=== PATIENT | female | born 1970 | race African-American/Black ===

== ENCOUNTER 2017-11-30 08:25 | Observation (INO) | payer MEDICAID ==
[~2017-11-30] VITALS: Ht 162.6 cm; Wt 100.0 kg
[2017-11-30 08:25] VITALS: BP 141/99; PULSE 80; RESP 20; TEMP 96.7; O2SAT 99
[~2017-11-30 08:25] MED LIST: AMLO10 PO; EXTR500C PO; FAMO20 PO; LORTA5 PO; PERI8.6T PO
[2017-11-30 09:19] LABS: AUTOMATED NEUTROPHIL # 4.1 TH/MM3 (1.8-7.7); BASOPHIL # 0.1 TH/MM3 (0-0.2); EOSINOPHIL # 0.2 TH/MM3 (0-0.4); HEMOGLOBIN 10.3 GM/DL (11.6-15.3); LYMPH % 26.9 % (9.0-44.0); LYMPHOCYTE # 1.8 TH/MM3 (1.0-4.8); MEAN CELL VOLUME 91.1 FL (80.0-100.0); MEAN CORPUSCULAR HEMOGLOBIN 31.5 PG (27.0-34.0); MEAN CORPUSCULAR HGB CONC 34.5 % (32.0-36.0); MEAN PLATELET VOLUME 7.6 FL (7.0-11.0); MONO % 6.9 % (0.0-8.0); MONOCYTE # 0.4 TH/MM3 (0-0.9); NEUT % 62.2 % (16.0-70.0); PLATELET COUNT 380 TH/MM3 (150-450); RED BLOOD COUNT 3.29 MIL/MM3 (4.00-5.30); RED CELL DISTRIBUTION WIDTH 13.9 % (11.6-17.2); WHITE BLOOD COUNT 6.5 TH/MM3 (4.0-11.0)
--- NOTE | 2017-11-30 09:21 | RADRPT ---
EXAM DATE/TIME: 11/30/2017 09:14 [facility] COMPARISON: CHEST SINGLE AP, April 28, 2016, 16:36. INDICATIONS : Right upper chest pain MEDICAL HISTORY : SURGICAL HISTORY : None. Cholecystectomy. Tubal ligation. section ENCOUNTER: Initial ACUITY: 2 weeks PAIN SCORE: 7/10 LOCATION: Right chest FINDINGS: A single view of the chest demonstrates the lungs to be symmetrically aerated without evidence of mas s, infiltrate or effusion. The cardiomediastinal contours are unremarkable. Osseous structures are intact. CONCLUSION: No acute disease. No significant change has occurred. Fabiano Arthur MD on November 30, 2017 at 9:19 Board Certified Radiologist. This report was verified electronically.
[2017-11-30 09:30] LABS: PROTHROMBIN TIME - PATIENT 9.9 SEC (9.8-11.6)
[2017-11-30 09:52] LABS: TROPONIN I LESS THAN 0.02 NG/ML (0.02-0.05)
[2017-11-30 10:00] VITALS: BP 152/78; PULSE 78; RESP 16; O2SAT 99
[2017-11-30 10:15] LABS: BICARBONATE 25.5 MEQ/L (21.0-32.0); BLOOD UREA NITROGEN 7 MG/DL (7-18); CALCIUM 8.3 MG/DL (8.5-10.1); CHLORIDE 109 MEQ/L (98-107); CREATININE 0.74 MG/DL (0.50-1.00); GLOMERULAR FILTRATION RATE 101 ML/MIN (>89); GLUCOSE,RANDOM 91 MG/DL (74-106); SODIUM (NA) 140 MEQ/L (136-145)
[2017-11-30] MEDS ORDERED: NITROGLYCERIN 2% OINT 1 GM PACKET TOPICAL ONE (10:45)
[2017-11-30] MEDS ORDERED: ONDANSETRON HCL 4 MG/2 ML VIAL IV PUSH ONE (10:45)
[2017-11-30] MEDS ORDERED: ASPIRIN 81 MG CHEW TAB CHEW ONE (10:45)
[2017-11-30] MEDS ORDERED: MORPHINE SULFATE 4 MG/ML INJ IV PUSH ONE (10:45)
--- NOTE | 2017-11-30 10:46 | PD ---
Physical Exam Date Seen by Provider: Nov 30, 2017 Narrative Patient presents with a chief complaint of chest pain which has been coming and going for the last several weeks. Her chest pain is worse today. She describes a pressure like sensation in the right side of her chest. Data Data Last Documented VS Vital Signs Date Time Temp Pulse Resp B/P (MAP) Pulse Ox O2 Delivery O2 Flow Rate FiO2 11/30/17 10:00 78 16 152/78 (102) 99 Room Air 11/30/17 08:25 96.7 Orders Orders Electrocardiogram (11/30/17 08:54) Complete Blood Count With Diff (11/30/17 08:54) Basic Metabolic Panel (Bmp) (11/30/17 08:54) Ckmb (Isoenzyme) Profile (11/30/17 08:54) Troponin I (11/30/17 08:54) Chest, Single Ap (11/30/17 08:54) Iv Access Insert/Monitor (11/30/17 08:54) Ecg Monitoring (11/30/17 08:54) Oxygen Administration (11/30/17 08:54) Oximetry (11/30/17 08:54) Coag Profile (11/30/17 08:54) CKMB (11/30/17 09:00) CKMB% (11/30/17 09:00) D-Dimer (11/30/17 10:43) Ondansetron Inj (Zofran Inj) (11/30/17 10:45) Morphine Inj (Morphine Inj) (11/30/17 10:45) Aspirin Chew (Aspirin Chew) (11/30/17 10:45) Nitroglycerin 2% Oint (Nitroglycerin 2% (11/30/17 10:45) Labs Laboratory Tests Test 11/30/17 09:00 White Blood Count 6.5 TH/MM3 Red Blood Count 3.29 MIL/MM3 Hemoglobin 10.3 GM/DL Hematocrit 30.0 % Mean Corpuscular Volume 91.1 FL Mean Corpuscular Hemoglobin 31.5 PG Mean Corpuscular Hemoglobin Concent 34.5 % Red Cell Distribution Width 13.9 % Platelet Count 380 TH/MM3 Mean Platelet Volume 7.6 FL Neutrophils (%) (Auto) 62.2 % Lymphocytes (%) (Auto) 26.9 % Monocytes (%) (Auto) 6.9 % Eosinophils (%) (Auto) 3.0 % Basophils (%) (Auto) 1.0 % Neutrophils # (Auto) 4.1 TH/MM3 Lymphocytes # (Auto) 1.8 TH/MM3 Monocytes # (Auto) 0.4 TH/MM3 Eosinophils # (Auto) 0.2 TH/MM3 Basophils # (Auto) 0.1 TH/MM3 CBC Comment DIFF FINAL Differential Comment Prothrombin Time 9.9 SEC Prothromb Time International Ratio 1.0 RATIO Activated Partial Thromboplast Time 21.5 SEC Blood Urea Nitrogen 7 MG/DL Creatinine 0.74 MG/DL Random Glucose 91 MG/DL Calcium Level 8.3 MG/DL Sodium Level 140 MEQ/L Potassium Level 3.7 MEQ/L Chloride Level 109 MEQ/L Carbon Dioxide Level 25.5 MEQ/L Anion Gap 6 MEQ/L Estimat Glomerular Filtration Rate 101 ML/MIN Total Creatine Kinase 288 U/L Creatine Kinase MB 4.1 NG/ML Creatine Kinase MB % 1.4 % Troponin I LESS THAN 0.02 NG/ML MDM Supervised Visit with KISHA: Yes Narrative Course I, Dr. Garcia, have reviewed the advance practice practitioner's documentation and am in agreement, met with the patient face to face, made the diagnosis, and the medical decision making was done by me. *My assessment and Findings: This patient is awake and alert. She looks anxious. Initial cardiac evaluation is negative. We have added a d-dimer. The plan is to admit her to the chest pain center once we have the results of the d-dimer. Please see Rikki Baer PA-C's note for results of laboratory and radiographic evaluation, ED course, final diagnosis and disposition Scripts No Active Prescriptions or Reported Meds Paula Garcia MD Nov 30, 2017 10:46
--- NOTE | 2017-11-30 10:47 | PD ---
HPI Chief Complaint: Chest Pain Time Seen by Provider: 10:35 Travel History International Travel<30 days: No Contact w/Intl Traveler<30days: No Traveled to known affect area: No History of Present Illness HPI 47-year-old -[place] female presents the emergency department with history of intermittent chest pressure,/pain which has become more prominent over the last 3 weeks. Patient states it comes and goes but has been worse in the past several days. Patient states she woke up with it this morning and it seemed to pass, but then returned when she came to work this morning. She describes it as a 7/10 pressure type pain in the right anterior substernal region. She seems to feel that it is improved if she puts pressure on it. She denies fever, chills, productive cough, wheezing, nausea, or vomiting. Patient has no history of hypertension except during , and is not diabetic. She states it seems to improve with rest normally, but today seems to be hanging on. She has no known drug allergies. PFSH Past Medical History Arthritis: Yes Cancer: No Cardiovascular Problems: No Diminished Hearing: No Endocrine: No Gastrointestinal Disorders: Yes GERD: Yes Genitourinary: No Immune Disorder: No Musculoskeletal: Yes Neurologic: Yes Psychiatric: No Reproductive: No Respiratory: No Immunizations Current: Yes Migraines: Yes ?: Not Tubal Ligation: Yes Past Surgical History Section: Yes Cholecystectomy: Yes Social History Alcohol Use: Yes (occ) Tobacco Use: No Substance Use: No Allergies-Medications (Allergen,Severity, Reaction): Coded Allergies: No Known Allergies (Verified Adverse Reaction, Unknown, 11/30/17) Reported Meds & Prescriptions Reported Meds & Active Scripts Active No Active Prescriptions or Reported Medications Review of Systems Except as stated in HPI: all other systems reviewed are Neg General / Constitutional: No: Fever, Chills Eyes: No: Visual changes HENT: No: Headaches Cardiovascular: Positive: Chest Pain or Discomfort, No: Palpitations, Irregular Rhythm, Tachycardia, Diaphoresis, Syncope, Dyspnea on exertion, Varicosities, Edema, Cyanosis, Varicosities, Phlebitis, Claudication Respiratory: No: Cough, Shortness of Breath, Wheezing Gastrointestinal: No: Nausea, Vomiting, Diarrhea, Abdominal Pain Genitourinary: No: Urgency, Frequency, Dysuria Musculoskeletal: No: Pain Skin: No Rash Neurologic: No: Weakness Psychiatric: No: Depression Endocrine: No: Polydipsia Hematologic/Lymphatic: No: Easy Bruising Physical Exam Narrative GENERAL: Patient appears moderately anxious and uncomfortable SKIN: Warm and dry. Normal color. Normal turgor. No diaphoresis. HEAD: Atraumatic. Normocephalic. EYES: Pupils equal and round. No scleral icterus. No injection or drainage. ENT: No nasal bleeding or discharge. Mucous membranes pink and moist. Pharynx is clear. Airways patent. NECK: Trachea midline. Supple and nontender CARDIOVASCULAR: Regular rate and rhythm. No murmurs gallops or rubs. RESPIRATORY: No accessory muscle use. Clear to auscultation. Breath sounds equal bilaterally. No reproducible pain with palpation to the chest. GASTROINTESTINAL: Abdomen soft, non-tender, nondistended. Hepatic and splenic margins not palpable. MUSCULOSKELETAL: Extremities without clubbing, cyanosis, or edema. No obvious deformities. NEUROLOGICAL: Awake and alert. No obvious cranial nerve deficits. Motor grossly within normal limits. Five out of 5 muscle strength in the arms and legs. Normal speech. PSYCHIATRIC: Appropriate mood and affect; insight and judgment normal. Data Data Last Documented VS Vital Signs Date Time Temp Pulse Resp B/P (MAP) Pulse Ox O2 Delivery O2 Flow Rate FiO2 11/30/17 10:00 78 16 152/78 (102) 99 Room Air 11/30/17 08:25 96.7 Orders Orders Electrocardiogram (11/30/17 08:54) Complete Blood Count With Diff (11/30/17 08:54) Basic Metabolic Panel (Bmp) (11/30/17 08:54) Ckmb (Isoenzyme) Profile (11/30/17 08:54) Troponin I (11/30/17 08:54) Chest, Single Ap (11/30/17 08:54) Iv Access Insert/Monitor (11/30/17 08:54) Ecg Monitoring (11/30/17 08:54) Oxygen Administration (11/30/17 08:54) Oximetry (11/30/17 08:54) Coag Profile (11/30/17 08:54) CKMB (11/30/17 09:00) CKMB% (11/30/17 09:00) Labs Laboratory Tests Test 11/30/17 09:00 White Blood Count 6.5 TH/MM3 Red Blood Count 3.29 MIL/MM3 Hemoglobin 10.3 GM/DL Hematocrit 30.0 % Mean Corpuscular Volume 91.1 FL Mean Corpuscular Hemoglobin 31.5 PG Mean Corpuscular Hemoglobin Concent 34.5 % Red Cell Distribution Width 13.9 % Platelet Count 380 TH/MM3 Mean Platelet Volume 7.6 FL Neutrophils (%) (Auto) 62.2 % Lymphocytes (%) (Auto) 26.9 % Monocytes (%) (Auto) 6.9 % Eosinophils (%) (Auto) 3.0 % Basophils (%) (Auto) 1.0 % Neutrophils # (Auto) 4.1 TH/MM3 Lymphocytes # (Auto) 1.8 TH/MM3 Monocytes # (Auto) 0.4 TH/MM3 Eosinophils # (Auto) 0.2 TH/MM3 Basophils # (Auto) 0.1 TH/MM3 CBC Comment DIFF FINAL Differential Comment Prothrombin Time 9.9 SEC Prothromb Time International Ratio 1.0 RATIO Activated Partial Thromboplast Time 21.5 SEC Blood Urea Nitrogen 7 MG/DL Creatinine 0.74 MG/DL Random Glucose 91 MG/DL Calcium Level 8.3 MG/DL Sodium Level 140 MEQ/L Potassium Level 3.7 MEQ/L Chloride Level 109 MEQ/L Carbon Dioxide Level 25.5 MEQ/L Anion Gap 6 MEQ/L Estimat Glomerular Filtration Rate 101 ML/MIN Total Creatine Kinase 288 U/L Creatine Kinase MB 4.1 NG/ML Creatine Kinase MB % 1.4 % Troponin I LESS THAN 0.02 NG/ML MDM Medical Decision Making Medical Screen Exam Complete: Yes Emergency Medical Condition: Yes Medical Record Reviewed: Yes Differential Diagnosis Atypical chest pain. PE. Unstable angina. Cardiac syndrome. Narrative Course EKG shows normal sinus rhythm without significant ST changes. Labs ordered per protocol prior to my seeing the patient showing normal CBC, CMP is normal, and first troponin is less than 0.02 D-dimer is ordered. Chest x-ray shows no acute process per radiologist If d-dimer is negative patient will be admitted to the chest pain center for rule out cardiac syndrome. Patient is given 2 mg morphine IV as well as 324 mg aspirin p.o., and sublingual nitro 0.4 mg 3 . Diagnosis Primary Impression: Chest pain at rest Admitting Information Admitting Physician Requests: Observation Scripts No Active Prescriptions or Reported Meds Condition: Stable Andriy Baer Nov 30, 2017 10:47
[2017-11-30 11:00] VITALS: BP 156/84; PULSE 87; RESP 16; O2SAT 100
[2017-11-30 11:29] VITALS: O2SAT 100
[2017-11-30] MEDS ORDERED: IOHEXOL 350 MG/ML 10 ML VIAL (for RAD DIAG) IVCONTRAST ONE (12:23)
--- NOTE | 2017-11-30 12:25 | PD ---
Physical Exam Date Seen by Provider: Nov 30, 2017 Time Seen by Provider: 12:20 Narrative 47-year-old female that presents to the ED for evaluation of chest pain. Patient was properly evaluated by Andriy Baer PA-C. I was asked to disposition patient pending lab report and imaging. Patient has been having some chest pain for about 3 weeks. Please refer to previous providers note. Patient had blood work and imaging ordered by him. D-dimer came positive so CTA was ordered to rule out PE. Plan is that if CTA is negative patient to be admitted to chest pain center she has never had a stress test. If CT is positive we will admit for PE per previous providers recommendations. Data Data Last Documented VS Vital Signs Date Time Temp Pulse Resp B/P (MAP) Pulse Ox O2 Delivery O2 Flow Rate FiO2 11/30/17 11:29 100 Room Air 11/30/17 11:29 11/30/17 11:00 87 16 11/30/17 08:25 96.7 Orders Orders Electrocardiogram (11/30/17 08:54) Complete Blood Count With Diff (11/30/17 08:54) Basic Metabolic Panel (Bmp) (11/30/17 08:54) Ckmb (Isoenzyme) Profile (11/30/17 08:54) Troponin I (11/30/17 08:54) Chest, Single Ap (11/30/17 08:54) Iv Access Insert/Monitor (11/30/17 08:54) Ecg Monitoring (11/30/17 08:54) Oxygen Administration (11/30/17 08:54) Oximetry (11/30/17 08:54) Coag Profile (11/30/17 08:54) CKMB (11/30/17 09:00) CKMB% (11/30/17 09:00) D-Dimer (11/30/17 10:43) Ondansetron Inj (Zofran Inj) (11/30/17 10:45) Morphine Inj (Morphine Inj) (11/30/17 10:45) Aspirin Chew (Aspirin Chew) (11/30/17 10:45) Nitroglycerin 2% Oint (Nitroglycerin 2% (11/30/17 10:45) Ct Pulmonary Angiogram (11/30/17 ) Iohexol 350 Inj (Omnipaque 350 Inj) (11/30/17 12:23) Admit Order (Ed Use Only) (11/30/17 12:42) Labs Laboratory Tests Test 11/30/17 09:00 White Blood Count 6.5 TH/MM3 Red Blood Count 3.29 MIL/MM3 Hemoglobin 10.3 GM/DL Hematocrit 30.0 % Mean Corpuscular Volume 91.1 FL Mean Corpuscular Hemoglobin 31.5 PG Mean Corpuscular Hemoglobin Concent 34.5 % Red Cell Distribution Width 13.9 % Platelet Count 380 TH/MM3 Mean Platelet Volume 7.6 FL Neutrophils (%) (Auto) 62.2 % Lymphocytes (%) (Auto) 26.9 % Monocytes (%) (Auto) 6.9 % Eosinophils (%) (Auto) 3.0 % Basophils (%) (Auto) 1.0 % Neutrophils # (Auto) 4.1 TH/MM3 Lymphocytes # (Auto) 1.8 TH/MM3 Monocytes # (Auto) 0.4 TH/MM3 Eosinophils # (Auto) 0.2 TH/MM3 Basophils # (Auto) 0.1 TH/MM3 CBC Comment DIFF FINAL Differential Comment Prothrombin Time 9.9 SEC Prothromb Time International Ratio 1.0 RATIO Activated Partial Thromboplast Time 21.5 SEC D-Dimer Quantitative (PE/DVT) 1.68 MG/L FEU Blood Urea Nitrogen 7 MG/DL Creatinine 0.74 MG/DL Random Glucose 91 MG/DL Calcium Level 8.3 MG/DL Sodium Level 140 MEQ/L Potassium Level 3.7 MEQ/L Chloride Level 109 MEQ/L Carbon Dioxide Level 25.5 MEQ/L Anion Gap 6 MEQ/L Estimat Glomerular Filtration Rate 101 ML/MIN Total Creatine Kinase 288 U/L Creatine Kinase MB 4.1 NG/ML Creatine Kinase MB % 1.4 % Troponin I LESS THAN 0.02 NG/ML [facility] Medical Record Reviewed: Yes Supervised Visit with KISHA: No Interpretation(s) CBC & BMP Diagram 11/30/17 09:00 Calcium Level 8.3 L troponin and CKMB negative d-dimmer positive EKG shows sinus rhythm with no sign of acute ischemia or arrythmia read by me and attending. Last Impressions Chest X-Ray 11/30/17 [id number] Signed Impressions: Service Date/Time: November 09:14 - CONCLUSION: No acute disease. No significant change has occurred. Fabiano Arthur MD CTA negative for acute pulmonary embolism Differential Diagnosis PE versus a typical chest pain versus ACS versus chest pain versus pneumonia Narrative Course 47-year-old female that presents to the ED for evaluation of chest pain. I was asked to continue care for the patient and disposition patient pending labs and imaging. Labs and imaging were done before patient got in the room. Labs did show a positive d-dimer. CTA was ordered. CT pulmonary angiogram showed negative for acute pulmonary embolism. Patient was reassured. This time there is some concern for ACS. She does not really have much risk factors other than her age. She does not have any family history, smoking or diabetes but she does appear to be slightly hypertensive here. She takes no medications. No drugs. My attending recommends admission to the chest pain center to further evaluate to see whether this is angina related. Patient agrees with this plan. Patient was admitted to the chest pain center. Diagnosis Primary Impression: Chest pain at rest Admitting Information Admitting Physician Requests: Observation Scripts No Active Prescriptions or Reported Meds Condition: Kermit Galeano Nov 30, 2017 12:25
--- NOTE | 2017-11-30 12:34 | RADRPT ---
EXAM DATE/TIME: 11/30/2017 12:11 [facility] COMPARISON: No previous studies available for comparison. INDICATIONS : Right upper chest pain for three weeks. IV CONTRAST: 60 cc Omnipaque 350 (iohexol) IV RADIATION DOSE: 23.09 CTDIvol (mGy) MEDICAL HISTORY : Gastroesophageal reflux disease. SURGICAL HISTORY : Cholecystectomy. section. ENCOUNTER: Initial ACUITY: 3 weeks PAIN SCALE: 4/10 LOCATION: chest TECHNIQUE: Volumetric scanning of the chest was performed using a pulmonary embolism protocol MIP images were re constructed. Using automated exposure control and adjustment of the mA and/or kV according to patien t size, radiation dose was kept as low as reasonably achievable to obtain optimal diagnostic quality images. DICOM format image data is available electronically for review and comparison. Follow-up recommendations for detected pulmonary nodules are based at a minimum on nodule size and pa tient risk factors according to Fleischner Society Guidelines. FINDINGS: PULMONARY ARTERIES: No filling defects are seen in the pulmonary arteries through the segmental level. LUNGS: Posterior bibasilar atelectasis is noted. There is no pneumothorax . No concerning pulmonary nodule is visualized. PLEURAE: There is no pleural thickening or pleural effusion. MEDIASTINUM: Cardiomegaly is noted. There is good visualization of the great vessels of the middle mediastinum. N o evidence of mediastinal or hilar adenopathy/mass. MUSCULOSKELETAL: Within normal limits for patient age. MISCELLANEOUS: The visualized upper abdominal organs demonstrate no acute abnormality. A hiatal hernia is noted. CONCLUSION: 1. No evidence of pulmonary embolism. 2. Posterior bibasilar atelectasis. 3. Cardiomegaly. 4. Small hiatal hernia. Chapo Masterson MD on November 30, 2017 at 12:28 Board Certified Radiologist. This report was verified electronically.
[2017-11-30] MEDS ORDERED: SODIUM CHLORIDE 0.9% FLUSH 10 ML FLUSH IV FLUSH PRN (13:45)
[2017-11-30] MEDS ORDERED: ACETAMINOPHEN 500 MG CPLT PO PRN (13:45)
[2017-11-30] MEDS ORDERED: ONDANSETRON HCL 4 MG/2 ML VIAL IV PUSH PRN (13:45)
[2017-11-30] MEDS ORDERED: NITROGLYCERIN 0.4 MG SL 25 TABS/BTL SL PRN (13:45)
[2017-11-30 14:26] VITALS: BP 137/78; PULSE 69; RESP 17; O2SAT 97
--- NOTE | 2017-11-30 14:44 | HHI.HP ---
HPI Primary Care Physician No Primary Care Physician Chief Complaint Chest pain History of Present Illness 47-year-old female without past medical history presents to emergency room for further evaluation of chest pressure. Reporting intermittent chest pressure for weeks, increasing in intensity and frequency last couple of days. Location substernal. Described as a "solid pain" and pressure. Severity moderate. No radiation. Duration hours. No associated symptoms of nausea, vomiting, dyspnea , or diaphoresis. Endorses associated symptom of headache and lightheadedness. No precipitating or relieving factors. Endorses deep breathing makes pain intensify. No particular position or movement makes pain better or worse. Denies similar pain in the past. Endorses she is under a lot of stress, working 12 hour days, usually 7 days a week, a single mother raising her two young daughters, and does not have any family in the area. Review of Systems General: No fatigue,weakness, fever, chills, recent illness, or change in appetite. Has been in her general state of health, however endorses "I do not eat healthy, stress a lot, and have not been taking care of myself as I should. " From [place] one year ago and has not established with a local primary care provider. HEENT: Frequent "tension headaches." No vision changes, no nasal congestion or drainage, no dysphasia CV: As stated above. No current CP or pressure. RESP: No SOB, cough, wheeze, or recent respiratory infection. GI: No nausea, vomiting, bowel changes, diarrhea, constipation, pain, distention , melena, or blood in the stool. No change in appetite. Reports 75 pound weight gain over last year due to poor diet and inactivity. 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 EXT: No lower leg edema, no paraesthesias MS: No discomfort, injury, trauma, or change in ROM NEURO: No change in memory, difficulty with balance, LOC, motor/sensory deficits PSYCH: No anxiety, depression, or situational stress. Currently under increased situational stress. SKIN: No rashes, no concerning lesions Past Family Social History Allergies: Coded Allergies: No Known Allergies (Verified Allergy, Unknown, 11/30/17) Past Medical History Diverticulitis Past Surgical History Cholecystectomy, C-sections Reported Medications Reported Meds & Active Scripts Active No Active Prescriptions or Reported Medications Active Ordered Medications Current Medications Medications (Trade) Dose Ordered Sig/Sea Route Start Time Stop Time Status Last Admin (NS Flush) 2 ml UNSCH PRN IV FLUSH 11/30/17 13:45 (NS Flush) 2 ml BID IV FLUSH 11/30/17 21:00 (Tylenol) 500 mg Q4H PRN PO 11/30/17 13:45 (Zofran Inj) 4 mg Q6H PRN IV PUSH 11/30/17 13:45 (Nitrostat Sl) 0.4 mg Q5M PRN SL 11/30/17 13:45 (Aspirin) 325 mg DAILY PO 12/01/17 09:00 Family History Noncontributory for early onset cardiovascular disease Social History No known diabetes, hypertension, or hyperlipidemia. Lifelong nonsmoker. Denies any alcohol use. Single. 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 Mother of 2 school-aged daughters. Past cardiac testing None Physical Exam Vital Signs Vital Signs Date Time Temp Pulse Resp B/P (MAP) Pulse Ox O2 Delivery O2 Flow Rate FiO2 11/30/17 14:26 69 17 137/78 (97) 97 Room Air 11/30/17 11:29 100 Room Air 11/30/17 11:29 100 Room Air 11/30/17 11:00 87 16 156/84 (108) 100 Room Air 11/30/17 10:00 78 16 152/78 (102) 99 Room Air 11/30/17 08:25 96.7 80 20 141/99 (113) 99 11/30/17 08:25 Room Air Physical Exam GENERAL: Alert WN, WD, NAD, pleasant, obese, female HEAD: NC, AT EYES: Sclera clear, conjunctiva without injection, pupils equal and round ENT: Mucous membranes pink and moist NECK: Supple, no masses, trachea midline CV: RRR, without murmur, rub, gallop, no JVD, S1-S2 no S3-S4. No carotid bruits. Chest wall pain easily reproduced with palpation. RESP: Clear lungs throughout bilateral, no crackles, wheeze, rhonchi, symmetrical chest rise, nonlabored, able to speak in full sentences ABD: Soft, NT, ND, no masses, positive bowel tones in obese EXT: Pulses +24, no dependent edema MS: Normal tone 4 extremities, no obvious deformities, full range of motion NEURO: CN II through CN XII grossly intact, motor strength 5/5, gait WNL PSYCH: A+O 3, pleasant affect, appropriate speech, mood, insight and judgment SKIN: Normal turgor, normal texture, no lesions, no rashes, brisk cap refill, even hair distribution Laboratory Laboratory Tests Test 11/30/17 09:00 11/30/17 13:30 White Blood Count 6.5 Red Blood Count 3.29 Hemoglobin 10.3 Hematocrit 30.0 Mean Corpuscular Volume 91.1 Mean Corpuscular Hemoglobin 31.5 Mean Corpuscular Hemoglobin Concent 34.5 Red Cell Distribution Width 13.9 Platelet Count 380 Mean Platelet Volume 7.6 Neutrophils (%) (Auto) 62.2 Lymphocytes (%) (Auto) 26.9 Monocytes (%) (Auto) 6.9 Eosinophils (%) (Auto) 3.0 Basophils (%) (Auto) 1.0 Neutrophils # (Auto) 4.1 Lymphocytes # (Auto) 1.8 Monocytes # (Auto) 0.4 Eosinophils # (Auto) 0.2 Basophils # (Auto) 0.1 CBC Comment DIFF FINAL Differential Comment Prothrombin Time 9.9 Prothromb Time International Ratio 1.0 Activated Partial Thromboplast Time 21.5 D-Dimer Quantitative (PE/DVT) 1.68 Blood Urea Nitrogen 7 Creatinine 0.74 Random Glucose 91 Calcium Level 8.3 Sodium Level 140 Potassium Level 3.7 Chloride Level 109 Carbon Dioxide Level 25.5 Anion Gap 6 Estimat Glomerular Filtration Rate 101 Total Creatine Kinase 288 Creatine Kinase MB 4.1 Creatine Kinase MB % 1.4 Troponin I LESS THAN 0.02 Result Diagram: 11/30/17 0900 11/30/17 0900 Imaging Last 48 hours Impressions Chest X-Ray 11/30/17 0854 Signed Impressions: Service Date/Time: November 09:14 - CONCLUSION: No acute disease. No significant change has occurred. Fabiano Arthur MD CT Angiography 11/30/17 0000 Signed Impressions: Service Date/Time: November 12:11 - CONCLUSION: 1. No evidence of pulmonary embolism. 2. Posterior bibasilar atelectasis. 3. Cardiomegaly. 4. Small hiatal hernia. Chapo Masterson MD Course EKG Normal sinus rhythm, no ST changes Caprini VTE Risk Assessment Caprini VTE Risk Assessment: No/Low Risk (score <= 1) Caprini Risk Assessment Model Point Value = 1 Point Value = 2 Point Value = 3 Point Value = 5 Age 41-60 Minor surgery BMI > 25 kg/m2 Swollen legs Varicose veins or History of unexplained or recurrent spontaneous Oral contraceptives or hormone replacement Sepsis (< 1 month) Serious lung disease, including pneumonia (< 1 month) Abnormal pulmonary function Acute myocardial infarction Congestive heart failure (< 1 month) History of inflammatory bowel disease Medical patient at bed rest Age 61-74 Arthroscopic surgery Major open surgery (> 45 min) Laparoscopic surgery (> 45 min) Malignancy Confined to bed (> 72 hours) Immobilizing plaster cast Central venous access Age >= 75 History of VTE Family history of VTE Factor V Leiden Prothrombin [id number] Lupus anticoagulant Anticardiolipin antibodies Elevated serum homocysteine Heparin-induced thrombocytopenia Other congenital or acquired thrombophilia Stroke (< 1 month) Elective arthroplasty Hip, pelvis, or leg fracture Acute spinal cord injury (< 1 month) Prophylaxis Regimen Total Risk Factor Score Risk Level Prophylaxis Regimen 0-1 Low Early ambulation 2 Moderate Order ONE of the following: *Sequential Compression Device (SCD) *Heparin 5000 units SQ BID 3-4 Higher Order ONE of the following medications: *Heparin 5000 units SQ TID *Enoxaparin/Lovenox 40 mg SQ daily (WT < 150 kg, CrCl > 30 mL/min) *Enoxaparin/Lovenox 30 mg SQ daily (WT < 150 kg, CrCl > 10-29 mL/min) *Enoxaparin/Lovenox 30 mg SQ BID (WT < 150 kg, CrCl > 30 mL/min) AND/OR *Sequential Compression Device (SCD) 5 or more Highest Order ONE of the following medications: *Heparin 5000 units SQ TID (Preferred with Epidurals) *Enoxaparin/Lovenox 40 mg SQ daily (WT < 150 kg, CrCl > 30 mL/min) *Enoxaparin/Lovenox 30 mg SQ daily (WT < 150 kg, CrCl > 10-29 mL/min) *Enoxaparin/Lovenox 30 mg SQ BID (WT < 150 kg, CrCl > 30 mL/min) AND *Sequential Compression Device (SCD) Assessment and Plan Assessment and Plan Atypical chest pain-admitted chest pain center. Rule out with 2 sets of EKGs and cardiac enzymes. Seen and evaluated with Dr. Zane Hughes. Proceed with exercise stress test after second EKG and troponin resulted, then proceed with exercise stress test. Dr. Hughes provided reassurance discomfort most likely musculoskeletal in nature. If unremarkable plans would be to discharge home, using warm heat to affected area in taking [id number] NSAIDs for the next few days. Encouraged establishing with a PCP. Patient agreed plan of care. 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 Verbalized understanding Musculoskeletal chest wall pain-Toradol 30 mg IV 1 dose Odalis Poole Nov 30, 2017 14:44
[2017-11-30 15:11] LABS: TROPONIN I LESS THAN 0.02 NG/ML (0.02-0.05)
[2017-11-30] MEDS ORDERED: KETOROLAC TROMETHAMINE 30 MG/ML (IVP) VIAL IV PUSH ONE (15:15)
--- NOTE | 2017-11-30 16:39 | HHI.DCPOC ---
Discharge Care Plan Diagnosis: (1) Atypical chest pain (2) Situational stress Goals to Promote Your Health * To prevent worsening of your condition and complications * To maintain your health at the optimal level Directions to Meet Your Goals Take your medications as prescribed Follow your dietary instruction Follow activity as directed Keep your appointments as scheduled Take your immunizations and boosters as scheduled If your symptoms worsen call your PCP, if no PCP go to Urgent Care Center or Emergency Room Smoking is Dangerous to Your Health. Avoid second hand smoke Call the 24-hour hour crisis hotline for domestic abuse at Odalis Poole Nov 30, 2017 16:39
[2017-11-30 17:02] VITALS: BP 169/99; PULSE 79; RESP 18; TEMP 97.3; O2SAT 98
[2017-11-30] MEDS ORDERED: SODIUM CHLORIDE 0.9% FLUSH 10 ML FLUSH IV FLUSH SCH (21:00)
[2017-12-01] MEDS ORDERED: ASPIRIN 325 MG TAB PO SCH (09:00)
--- NOTE | 2017-12-01 11:42 | TR ---
Date Performed: 11/30/2017 Time Performed: 16:18:42 DOCTOR: Zane Hughes DRUG LIST: CLINICAL HISTORY: REASON FOR TEST: ACUTE CHEST PAIN, R/O ACS REASON FOR ENDING: OBSERVATION: CONCLUSION: Gus protocol completed. Stopped sec to reaching target heart rate and leg fatigue. Maximum PB=855 Target HR Achieved=85.0% Maximum JK=580/80 Total Exercise Time=2:34. No ectopy. No re prod chest discomfort. No st t segment changes. Poor exercise tolerance. Hypertensive response. Recov caitlyn quick and unremarkable. Sinus arrhythmia noted. COMMENTS: Conclusion: Normal treadmill exercise. No evidence of ischemia.
--- NOTE | 2017-12-01 11:45 | EKG ---
Date Performed: 11/30/2017 Time Performed: 11:34:05 PTAGE: 47 years EKG: Sinus rhythm NORMAL ECG PREVIOUS TRACING : 11/30/2017 08.39 Since previous tracing, no significant change noted DOCTOR: Zane Hughes Interpretating Date/Time 12/01/2017 11:43:01
--- NOTE | 2017-12-01 11:45 | EKG ---
Date Performed: 11/30/2017 Time Performed: 08:39:41 PTAGE: 47 years EKG: Sinus rhythm NORMAL ECG NO PREVIOUS TRACING DOCTOR: Zane Hughes Interpretating Date/Time 12/04/2017 07:51:11
== END 2017-11-30 19:12 | disposition home or self-care (01) ==
LOC: NEDAMB 08:25 → NEDA 12:44 → NEPHCDU 17:33
DX: R07.89 Other chest pain (principal); D64.9 Anemia, unspecified; I51.7 Cardiomegaly; K21.9 Gastro-esophageal reflux disease without esophagitis; K44.9 Diaphragmatic hernia without obstruction or gangrene; M19.90 Unspecified osteoarthritis, unspecified site
CPT/HCPCS: 71045; 71275; 80048; 82550; 82552; 84484; 85025; 85379; 85610; 85730; 93005; 93017; 96374; 96375; 96376; 99285; G0378; J1885; J2270; J2405; Q9967